=== PATIENT | female | born 1955 | race African-American/Black ===

== ENCOUNTER 2021-07-01 09:02 | Inpatient (IN) | payer OTHER ==
[~2021-07-01] VITALS: Ht 172.7 cm; Wt 59.1 kg
--- NOTE | ~2021-07-01 | EMS ---
[address] [place] [address] EMS Patient Care Report Name: RAMÍREZ BHAKTA Room #: 355-P ADM IN M.R.#: [id number] Admission: 07/01/21 Attend Phys: Unique Tipton MD Discharge: Date of : 55 Report #: [id number] THIS REPORT FOR: //name// Report Transmitted: 07/03/2021 10:49 EMS Care Summary [place], [place]/[facility] Incident [id number] @ 07/01/2021 08:22 Incident Location [address] [place] [address] 104 Patient RAMÍREZ BHAKTA Female, 65 Years 1955 Patient Address [address] [address] Patient History Substance Abuse,Anxiety, Patient Allergies No known allergies, Patient Medications Trazodone, Buspirone, Loperamide, Suboxone, Hydroxyzine, Flexeril, Chief Complaint chest pain Disposition Transported No Lights/[place] Dispatch Reason Sick Person Transported To [facility] Narrative arrived to find patient lying in bed with nursing staff stating that they had no idea she called. patients daughter called for her having chest pain that started at about 7:30 this morning. patient states that it stays in her chest [address] [place] [address] EMS Patient Care Report Name: RAMÍREZ BHAKTA Room #: 355-P [facility] IN M.R.#: [id number] Admission: 07/01/21 Attend Phys: Unique Tipton MD Discharge: Date of : 55 Report #: [id number] and that she would like to go to the closest hospital for care. patient and all belongings are left in room with nursing staff at bedside. patient is conscious and breathing upon leaving the room. Initial Vitals @08:46P: 98,CO: 5,SpO2: 99, @08:43P: 98,R: 20,BP: 189/100,Pain: 4/10,GCS: 15,SpO2: 98,Revised Trauma: 12, @08:34P: 100,R: 20,BP: 190/90,Pain: 4/10,GCS: 15,SpO2: 99,Revised Trauma: 12, Assessments @08:34MENTAL:No Abnormalities,SKIN:No Abnormalities,HEENT:Head/Face: No Abnormalities,Eyes: No Abnormalities,Neck/Airway: No Abnormalities,LUNG SOUNDS:General: No Abnormalities,Left Upper: No Abnormalities,Right Upper: No Abnormalities,Left Lower: No Abnormalities,Right Lower: No Abnormalities,ABDOMEN:General: No Abnormalities,Left Upper: No Abnormalities,Right Upper: No Abnormalities,Left Lower: No Abnormalities,Right Lower: No Abnormalities,PELVIS//GI:No Abnormalities,EXTREMITIES:Left Arm: No Abnormalities,Right Arm: No Abnormalities,Left Leg: No Abnormalities,Right Leg: No Abnormalities,PULSE:NEURO:No Abnormalities, Impression Chest Pain / Discomfort Procedures @08:4612-Lead ECGResponse: UnchangedSucceeded@08:34ALS AssessmentResponse: UnchangedSucceeded@08:34StretcherResponse: Unchanged Timeline 08:15,Call Received 08:15,Dispatch Notified 08:22,Dispatched 08:23,En Route 08:30,On Scene 08:32,At Patient 08:34,ALS Assessment,Response: UnchangedSucceeded, 08:34,Stretcher,Response: Unchanged 08:34,BP: 190/90 M,PULSE: 100,RR: 20 R,SPO2: 99 Ox,ETCO2: ,BG: ,PAIN: 4,GCS: 15, 08:43,BP: 189/100 M,PULSE: 98,RR: 20 R,SPO2: 98 Ox,ETCO2: ,BG: ,PAIN: 4,GCS: 15, 08:45,Depart Scene 08:46,12-Lead ECG,Response: UnchangedSucceeded, 08:46,BP: / M,PULSE: 98,RR: R,SPO2: 99 Ox,ETCO2: ,BG: ,PAIN: ,GCS: , 09:00,At Destination 09:10,Call Closed [address] [address] EMS Patient Care Report Name: RAMÍREZ BHAKTA Room #: 355-P ADM IN M.R.#: [id number] Admission: 07/01/21 Attend Phys: Unique Tipton MD Discharge: Date of : 55 Report #: [id number] Disclaimer v1.1 Copyright 2020 [employer] This EMS Care Summary contains data elements from the applicable legal record (which may be displayed differently). It is designed to provide pertinent information for the following purposes: continuity of care, clinical quality, and state data reporting. The complete legal record is available to ED staff and administrators of the receiving hospital in [employer]'s Patient Tracker. All data is provided "as is."
[2021-07-01 09:03] VITALS: BP 196/101
[2021-07-01 09:35] LABS: ABSOLUTE NEUTROPHILS 6.6 thou/uL (1.4-8.2); BASOPHILS 1.3 % (0.0-2.0); HEMATOCRIT 25.9 % (37.0-47.0); HEMOGLOBIN 8.8 gm/dL (12.0-15.0); LYMPHOCYTES 10.4 % (24.0-44.0); MCH 30.8 pg (26.0-34.0); MCV 90.4 fL (80.0-100.0); MONOCYTES 5.7 % (1.0-8.0); PLATELET COUNT 452 thou/uL (150-400); POLYS 76.6 % (36.0-66.0); RBC 2.86 mil/uL (4.20-5.00); RDW 16.9 % (10.5-14.5); WBC 8.6 thou/uL (4.0-11.0)
[2021-07-01 09:52] LABS: CALCIUM 9.4 mg/dL (8.5-10.1); CREATININE 4.1 mg/dL (0.6-1.0); POTASSIUM 4.3 mmol/L (3.5-5.1)
[2021-07-01 10:02] LABS: ALBUMIN 2.5 g/dL (3.4-5.0); TOTAL BILIRUBIN 0.2 mg/dL (0.2-1.0); TOTAL PROTEIN 6.8 g/dL (6.4-8.2)
[2021-07-01] MEDS ORDERED: MOBIC15 MG PO (11:55)
[2021-07-01] MEDS ORDERED: ESCITALOPRA5 MG/5 ML PO (12:03)
[2021-07-01] MEDS ORDERED: LISINOPRIL10 MG PO (12:04)
[2021-07-01] MEDS ORDERED: NORVASC5 MG PO (12:05)
[2021-07-01] MEDS ORDERED: LEVO-T50 MCG PO (12:05)
[2021-07-01] MEDS ORDERED: ALLOPURINOL 30300 M1 PO (12:06)
[2021-07-01] MEDS ORDERED: SUPER THERAVIT1 EACH PO (12:06)
[2021-07-01] MEDS ORDERED: POTASSIUM ALUM10 GM PO (12:07)
[2021-07-01] MEDS ORDERED: ELIQUIS5 MG PO (12:08)
[2021-07-01] MEDS ORDERED: PLAVIX 75 MG TA75 MG PO (12:08)
[2021-07-01] MEDS ORDERED: LIPITOR40 MG PO (12:09)
[2021-07-01] MEDS ORDERED: MULTAQ 400 MG400 MG PO (12:09)
[2021-07-01 13:08] VITALS: BP 183/90
[2021-07-01] MEDS ORDERED: ASA81BEC PO (13:17)
[2021-07-01] MEDS ORDERED: COREG6.25 MG PO (13:17)
[2021-07-01] MEDS ORDERED: NEURONTIN 300M300 M2 PO (13:18)
[2021-07-01] MEDS ORDERED: LEVEMIR100 UNIT/1 SUBQ (13:19)
[2021-07-01] MEDS ORDERED: HYDRALAZINE HC100 MG PO (13:19)
[2021-07-01 13:32] VITALS: BP 184/90
[2021-07-01] MEDS ORDERED: NIFEDIPINE ER60 M1 PO (13:34)
[2021-07-01] MEDS ORDERED: NOVOLOG100 UNIT/M SUBQ (13:35)
[2021-07-01] MEDS ORDERED: ZOLOFT50 M1 PO (13:35)
[2021-07-01 13:53] VITALS: BP 184/99
[2021-07-01] MEDS ORDERED: CALCIUM CARBON500 MG PO (15:44)
[2021-07-01] MEDS ORDERED: CALCITRIOL0.25 MCG PO (15:44)
[2021-07-01] MEDS ORDERED: PROTONIX40 M2 PO (15:48)
[2021-07-01] MEDS ORDERED: LIDOCAINE 4% K1 EACH TOP (15:48)
[2021-07-01] MEDS ORDERED: LOKELMA10 GM PO (15:49)
[2021-07-01] MEDS ORDERED: TYLENOL325 MG PO (15:49)
[2021-07-01 16:34] VITALS: BP 180/107
--- NOTE | 2021-07-01 18:28 | NUR ---
Pt arrived from ED around 1400. Pt education, assessment, orders, medications, consults all reviewed and acknowledged. Pt allen Rosas/Ox4, 5L NC.
[2021-07-01 19:55] VITALS: BP 122/73
[2021-07-02] VITALS: BP 140/53
[2021-07-02 04:45] VITALS: BP 134/80
--- NOTE | 2021-07-02 06:50 | EKG ---
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 : 1955 Requested By: Seema Ramos Order Number: [id number] MD: Hamilton Metz Measurements Intervals [place] Rate: 90 P: 86 CA: 178 QRS: 3 QRSD: 89 T: 41 QT: 392 QTc: 480 Interpretive Statements Sinus rhythm Abnormal R-wave progression, early transition Consider left ventricular hypertrophy No previous ECG available for comparison Electronically Signed On 07-02-2021 6:50:02 CDT by Hamilton Metz [email or web address] <ELECTRONICALLY SIGNED> By: Hamilton Metz MD, [facility] 07/02/21 0650 1621 1621 Hamilton Metz MD, FACC /EPI
--- NOTE | 2021-07-02 06:50 | EKG ---
[address] [address] ELECTROCARDIOGRAM REPORT Name: RAMÍREZ BHAKTA Room #: 355- ADM IN M.R.#: [id number] Admission: 07/01/21 Attend Phys: Unique Tipton MD Discharge: Date of : 55 Report #: [id number] [facility] ED Test Date: 2021-07-01 Test Time: 09:07:14 Pat Name: RAMÍREZ BHAKTA Department: Room: 355 Gender: F Sports Complex Attendant: UNKNOWN : 1955 Requested By: Julieta العلي Order Number: [id number] : Hamilton Metz Measurements Intervals [place] Rate: 96 P: 57 AL: 182 QRS: 20 QRSD: 94 T: 59 QT: 355 QTc: 449 Interpretive Statements Sinus rhythm Probable left ventricular hypertrophy No previous ECG available for comparison Electronically Signed On 07-02-2021 6:49:35 CDT by Hamilton Metz [email or web address] <ELECTRONICALLY SIGNED> By: Hamilton Metz MD, [facility] 07/02/21 0649 0907 6 Hamilton Metz MD, FACGe /EPI
--- NOTE | 2021-07-02 07:12 | NUR ---
Up in commode at HS and c/o sore buttock stating she has an open sore. Found small open area , picture taken and z guard applied. She requested tylenol last night and again this am for back pain. Denies any chest pain. BP has improved. O2 at 5L (baseline) with O2 sat up to 100%. She does get short of breath wih exertion. Bed alarm on and SCD's in place. Voided per commode. Right chest tessio dialysis cath. No bm this shift.
[2021-07-02 07:53] LABS: ABSOLUTE NEUTROPHILS 6.8 thou/uL (1.4-8.2); BASOPHILS 1.1 % (0.0-2.0); EOSINOPHILS 5.8 % (0.0-3.0); HEMATOCRIT 26.4 % (37.0-47.0); HEMOGLOBIN 8.5 gm/dL (12.0-15.0); LYMPHOCYTES 13.5 % (24.0-44.0); MCH 29.3 pg (26.0-34.0); MCHC 32.1 g/dL (28.0-37.0); MCV 91.3 fL (80.0-100.0); MONOCYTES 8.5 % (1.0-8.0); PLATELET COUNT 480 thou/uL (150-400); POLYS 71.1 % (36.0-66.0); RBC 2.89 mil/uL (4.20-5.00); RDW 17.5 % (10.5-14.5); WBC 9.5 thou/uL (4.0-11.0)
[2021-07-02 08:08] LABS: ALBUMIN 2.4 g/dL (3.4-5.0); CALCIUM 8.5 mg/dL (8.5-10.1); CREATININE 4.8 mg/dL (0.6-1.0); MAGNESIUM 1.9 mg/dL (1.8-2.4); PHOSPHORUS 4.4 mg/dL (2.5-4.9); POTASSIUM 4.7 mmol/L (3.5-5.1)
--- NOTE | 2021-07-02 09:28 | NUR ---
Pt triggered for wounds. Noted with very small StgI decub ulcer to R gluteal region. Admitted with left sided chest pain, cardio consulted. Covid+ 2 weeks ago, awaiting current PCR. Continues with SOA, current smoker. PMH: HTN, DMII, ESRD on HD T/T/S. No intakes reported yet. No c/o recent weight loss or decreased appetite on admit. On renal diet, appropriate. BMI 20.5, WNL. Will initiate [place] for wound healing and ESRD, BID. Low nutrition risk at this time, follow intake trends.
--- NOTE | 2021-07-02 09:51 | NUR ---
WOUND CONSULT; THE PATIENT HAS A SMALL PRESSURE INJURY TO COCCYX GENERAL AREA 1 X 0.5 X 0.1 THE PERIWOUND IS MASCERATED. THE PATIENT GRANT IS 17 AND THE ALBUMIN VALUE IS 2.4 TODAY. RECOMMENDATIONS; -LOW AIR LOSS PUMP -Q2H TURINING AT A MINIMUM. -APPLY ZGUARD BID/PRN TO COCCYX
--- NOTE | 2021-07-02 12:46 | NUR ---
PT ON DIALYSIS; OT EVAL TO BE COMPLETED 07/03/21
--- NOTE | 2021-07-02 13:21 | 2DMMODE ---
[facility] [place] [address] 2 D/M-MODE ECHOCARDIOGRAM Name: RAMÍREZ BHAKTA Room #: 355-P ADM IN M.R.#: [id number] Admission: 07/01/21 Attend Phys: Unique Tipton MD Discharge: Date of : 55 Report #: [id number] THIS REPORT FOR: cc: Filiberto Alvares MD, Srinath MD Santiago, Patrick MD [facility] ~ APPROVED REPORT Study performed: 07/02/2021 12:21:06 EXAM: Limited 2D, Doppler, and color-flow Echocardiogram Patient Location: Bedside Room #: 355 Status: routine BSA: 1.71 HR: 111 bpm BP: 134/80 mmHg Rhythm: Tachycardia Other Information Study Quality: Adequate Technically limited study due to uncooperative patient. Unable to position. Indications Chest pain. HTN. COVID-19. Hx: HTN, HLP, DM, ESRD. Aortic Valve AoV Peak Jose.: 1.29 m/s AO Peak Gr.: 6.68 mmHg Tricuspid Valve RAP Estimate: 5.00 mmHg Left Ventricle The left ventricle is normal size. There is normal LV segmental wall motion. Moderate concentric left ventricular hypertrophy. Left ventricular systolic function is normal. LVEF is 60-65%. This study is not technically sufficient to allow evaluation of the LV diastolic function due to tachycardia. Right Ventricle The right ventricle is normal size. The right ventricular systolic function is normal. [facility] [address] [place] [address] 2 D/M-MODE ECHOCARDIOGRAM Name: RAMÍREZ BHAKTA Room #: 355-P ADM IN M.R.#: [id number] Admission: 07/01/21 Attend Phys: Eligio García Discharge: Date of : 55 Report #: [id number] Atria The atria appear normal in size. Aortic Valve Aortic valve is grossly normal in structure. Trace aortic regurgitation. There is no aortic valvular stenosis. Mitral Valve The mitral valve is normal in structure. There is no mitral valve regurgitation noted. No evidence of mitral valve stenosis. Tricuspid Valve The tricuspid valve is normal in structure. There is no tricuspid valve regurgitation noted. Unable to assess PA pressure. Pulmonic Valve Pulmonic valve is not well visualized. Great Vessels The aortic root is normal in size. Ascending aorta is not well visualized. IVC is normal in size and collapses >50% with inspiration. Pericardium There is no pericardial effusion. <Conclusion> Normal left ventricular size with moderate concentric hypertrophy Ejection fraction 60-65% Grade 1 diastolic dysfunction Normal right ventricular size Normal atrial size Color-flow Doppler study was performed of the aortic/mitral/tricuspid/pulmonary valve Normal aortic/mitral valve structure and function No tricuspid valve insufficiency No pericardial effusion Normal aortic root size. <ELECTRONICALLY SIGNED> By: Hamilton Metz MD, FACC 07/02/21 1321 132 20 Hamilton Metz MD, [facility] /INF
--- NOTE | 2021-07-02 15:00 | NUR ---
COVID PCR IS POSITIVE PER LAB
[2021-07-02 15:12] VITALS: BP 145/85
--- NOTE | 2021-07-02 15:52 | NUR ---
INITIAL ASSESSMENT: SW reviewed chart and spoke with nursing and attending physician. Pt was admitted from [facility] due to chest pain. Pt with hx of COVID. Pt placed in Enhanced Isolation. Repeat COVID test ordered today. Pt with hx of ESRD and is a dialysis pt. Pt is on 5L of O2. SW spoke with pt via phone. Introduced role of SW. Pt appears to be alert/orientated x 4. Pt states she has been at [facility] for just a few days. Pt was hospitalized at [facility] prior to going to [employer]. Pt states she normally lives at home with her nephew. Pt goes to dialysis at [facility]. Pt reports that prior to hospitalization at [facility], she was independent with ambulation and ADLs. Pt states she does not want to return to [facility]. SW explained need to find an in-network provider and may need insurance authorization. Pt verbalized understanding. PT/OT unable to evaluate pt today due to pt being on dialysis. RUPERT is following to assist as needed with discharge planning.
[2021-07-02 20:33] VITALS: BP 115/64
--- NOTE | 2021-07-02 22:58 | NUR ---
PT ASKING FOR SLEEP AND PAIN MEDICATION NOW. STATES SHE IS A "HEROIN USER" AT HOME. TOOK PHONE CALL FROM SOMEONE STATING TO BE PT SISTER, SAYING "SHE IS A USER AND NEEDS SOMETHING TO TAKE THE EDGE OFF." SAID THANK YOU FOR YOUR CONCERN AND WE WILL MONITOR YOUR SISTER.
[2021-07-03 02:06] LABS: HEP B SURFACE Ab(ANTI-HBS Non Reactive (()); HEPATITIS B SURFACE AG Negative (Negative)
[2021-07-03 04:50] VITALS: BP 147/86
[2021-07-03 07:55] VITALS: BP 161/90
[2021-07-03] MEDS ORDERED: BENICAR40 MG PO (08:15)
--- NOTE | 2021-07-03 09:51 | NUR ---
RUPERT reviewed chart and spoke with nursing. Pt has discharge orders. Pt remains in Enhanced Isolation due to COVID. Pt's PCR test yesterday was positive. SW spoke with pt via phone regarding discharge plan. In-network SNF list obtained from insurance website. Reviewed limited options with pt. Pt is agreeable with referral to [facility] SNF. SW informed pt that she has discharge orders and might discharge today pending bed availability and insurance auth. Pt verbalized understanding. SW faxed referral to [facility] and notified liaison of new referral. Awaiting input if insurance auth is required. Will need therapy evals. RUPERT updated attending physician. SW is following to assist as needed with discharge planning.
[2021-07-03 11:39] VITALS: BP 159/91
--- NOTE | 2021-07-03 13:24 | NUR ---
PT ALERT AND ORIENTED TIMES FOUR WITH PERIODS OF CONFUSION. VSS. SR ON TELE. PT C/O PAIN PRN PAIN MEDIATIONS GIVE WITH SOME RELEIF. PT UP TO SIDE OF TE BED WITH ASSIST OF ONE. PT TOLERATES MEDS AND MEALS. PT SLOWLY PROGRESSING TOWRADS POC GOALS.
[2021-07-03 15:15] VITALS: BP 149/88
--- NOTE | 2021-07-03 16:10 | EKG ---
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
[2021-07-03 19:47] VITALS: BP 136/84
--- NOTE | 2021-07-04 03:16 | NUR ---
3 liters n/c tonight. she has had one very large urine output that soaked the entire bed, very foul smelling urine. she is incontinent of bowel and bladder. complains of back pain gave her tylenol for pain. she did complain of some nausea and the zofran helped relieve. she is having trouble resting tonight. she is aware of plan for discharge soon.
[2021-07-04 03:30] VITALS: BP 166/93
[2021-07-04 08:16] VITALS: BP 171/114
[2021-07-04 11:24] VITALS: BP 153/92
[2021-07-04 14:20] VITALS: BP 141/94
[2021-07-04 15:15] VITALS: BP 147/91
--- NOTE | 2021-07-04 16:31 | NUR ---
RN ASSUMED PT'S CARE AT 0700AM, PT IS A&OX4, PT IS ON O2 2-3L/MIN/NC, PT'S VS AND O2SAT ARE STABLE BY THIS TIME, PT HAS DIALYSIS TODAY, REMOVE 700ML FLUID, PT IS ANXIETY AT TIME, PT STARTS NEW PRN MEDICATION FOR BACK PAIN, PT'S N/V CAN CONTROL BY MEDICATIONS,PT IS VERY WEAK AND POOR EATING , PT NEEDS HELP ADL. RN HAS REPORTED DR ABOUT PT'DIARRHEA, NEW ORDER STOOL SENT TO CHECK C-DIFF.
[2021-07-04 19:40] VITALS: BP 163/87
[2021-07-05 04:50] VITALS: BP 184/104
--- NOTE | 2021-07-05 06:44 | NUR ---
PT MAKING SLOW PROGRESS TOWARDS GOALS. C/O RECURRENT BACK PAIN FREQUENTLY RATING IT 7-9/10. ON O2 AT 4L PER NC OVERNIGHT. LUNGS DIMINISHED THROUGHOUT.
[2021-07-05 07:51] VITALS: BP 168/100
[2021-07-05 11:13] VITALS: BP 161/99
[2021-07-05 15:04] VITALS: BP 137/81
--- NOTE | 2021-07-05 18:39 | NUR ---
RN ASSUMED PT'S CARE AT 0700AM, PT IS A&OX4, PT IS ON O2 2L/MIN/NC,PT'S VS AND O2SAT ARE STABLE, PT IS CONTINUING PAIN MANAGEMENT AND TREAT COVID, AND DAILYSIS, RN HAS REPORTED TO DR ABOUT PT'S POOR EATING, PT IS RELAXING NOW.
[2021-07-05 20:14] VITALS: BP 145/80
[2021-07-06 03:35] VITALS: BP 156/73
[2021-07-06 09:00] VITALS: BP 165/80
--- NOTE | 2021-07-06 09:39 | NUR ---
WOUND CARE F/U; AWAKE, ALERT, COOPERATIVE, C/O NAUSEA, SITTING UP IN CHAIR, COCCYX WOUND ALMOST CLOSED, HEALING, NO DRAINAGE, NO S/S INFECTION, CONTS ON LOW AIR LOSS PUMP TO BED, ENCOURAGED TO NOT SIT LONG PERIODS, SEE PROCESS INTERVENTION FOR WOUND DETAILS RECOMMENDATIONS; CONT Z GUARD OR BARRIER CREAM TO AREA BID AND PRN, CONT LOW AIR LOSS PUMP TO BED, ENCOURAGE TO NOT SIT LONG PERIODS, TURN FREQ WHEN IN BED CLAIMS ADJUSTER AWARE
[2021-07-06 11:07] VITALS: BP 182/87
--- NOTE | 2021-07-06 11:44 | NUR ---
RUPERT reviewed chart and spoke with nursing and attending physician. Pt remains in Enhanced Isolation due to COVID. Pt is afebrile and on 5L of O2. Discharge ppwk completed by attending physician. RUPERT faxed clinical and therapy updates to [facility] post acute liaison for review. Per liaison, insurance auth is pending for pt to admit to [facility]. RUPERT placed call to pt's room. No answer. Chart copy requested. RUPERT is following to assist as needed with discharge planning.
[2021-07-06 14:05] VITALS: BP 165/88
[2021-07-06 16:07] VITALS: BP 123/67
--- NOTE | 2021-07-06 16:37 | NUR ---
RN ASSUMED PT'S CARE AT 0700AM, PT IS A&OX3 ( PERSON, PLACE AND TIME), PT IS ON O2 2-3L/MIN/NC, PT'S O2SAT STAYS AT 92-95%, PT 'S SOB AND N/V HAVE IMPROVED, RN HAS REPORTED TO DR ABOUT PT'S POOR EATING, PT GETS UP TO CHAIR WITH ASSIST, PT IS CONTINUING PAIN MANAGEMENT AND TREAT COVID MEDICATIONS.PT'S DISCHAGE STILL IS PENDING.PT IS RELAXING NOW.
[2021-07-06 20:00] VITALS: BP 115/75
[2021-07-07 04:20] VITALS: BP 110/61
--- NOTE | 2021-07-07 06:55 | NUR ---
POOR APPETITE, PT NOT EATING DINNER TRAY. ONLY WANTING SNACKS AND PAIN MEDICATION. DIALYSIS TODAY AND POSSIBLE DC. PT USES CALL LIGHT FREQUENTLY. REEDUCATED PT ON HOW TO PULL UP HER BLANKETS AND MOVE HERSELF UP IN BED. PT UP TO BSC.
[2021-07-07 07:25] VITALS: BP 142/88
[2021-07-07 11:19] VITALS: BP 137/79
--- NOTE | 2021-07-07 12:37 | NUR ---
RUPERT reviewed chart and spoke with nursing and attending physician. Pt remains in Enhanced Isolation due to COVID. Pt is afebrile and on 2L of O2. Pt is medically stable for discharge to [facility] today pending insurance authorization. RUPERT faxed updated clinical and OT note to [facility] post-acute liaison for review. Per liaison, insurance auth is still pending. RUPERT spoke with pt via phone to provide update. Pt verbalized understanding. SW is following to assist as needed with discharge planning.
[2021-07-07 16:30] VITALS: BP 111/70
--- NOTE | 2021-07-07 16:53 | NUR ---
RN ASSUMED PT'S CARE AT 0700AM, PT IS A&OX4, PT IS ON O2 2L/MIN/NC, PT HAS DIALYSIS TODAY, REMOVAL 1500ML FLUID, PT IS TOLERATVE DAILYSIS, PT'S VS ARE STABLE, RN HAS NOTIFIED DR AND FAMILY ABOUT PT'S POOR EATING AT MEAL TIME, PT'S SOB , N/V AND DIARRHEA HAVE IMPROVED, PT GETS UP TO CHAIR WITH ASSIST. PT WILL DC TO SNF TOMORROW.
[2021-07-07 19:21] VITALS: BP 112/72
[2021-07-08 03:14] VITALS: BP 185/97
--- NOTE | 2021-07-08 05:10 | NUR ---
PT MAKING SLOW PROGRESS TOWARDS GOALS. ON O2 AT 2L PER NC OVERNIGHT. NO SOA NOTED WHILE AT REST. X2 DOSES OF LORTAB GIVEN FOR BACK PAIN. LUNGS DIMINISHED THROUGHOUT. PT REPORTS SMALL AMOUNT OF PAIN RELIEF FROM LORTAB.
[2021-07-08 05:54] VITALS: BP 193/104
--- NOTE | 2021-07-08 08:41 | NUR ---
DISCHARGE NOTE: SW reviewed chart. Pt is medically stable for discharge to [facility] today. SW confirmed with [facility] liaison, who confirmed they do have insurance auth and are able to accept pt today. SW provided info for [facility] to arrange transportation. Chart copy requsted. SW spoke with pt via phone to provide update. Pt is aware and in agreement with discharge plan. Pt requesting to discharge as early as possible. SW explained that the facility will schedule transportation and let SW know. Pt verbalized understanding. SW is following to assist as needed with discharge planning.
[2021-07-08 12:22] VITALS: BP 152/86
--- NOTE | 2021-07-08 14:39 | NUR ---
ASSUMED PATIENT CARE AT 0700. A/O X4. NAUSEA, POOR APPETITE. LOOSE STOOL. NOT TOWARDS POC GOALS. WILL DC TO SNF SOON.
== END 2021-07-08 15:41 | DRG 189 ==
LOC: ER 09:02 → EROBS 13:09 → 3W 13:09
PROVIDERS: Emergency Medicine; Hospitalist; Nurse Practitioner; ADMIT Hospitalist; ATTEND Hospitalist
PROC: 5A1D70Z Performance of Urinary Filtration, Intermittent, Less than 6 Hours Per Day (ICD-10-PCS; principal; 2021-07-02)
PROC: 5A1D70Z Performance of Urinary Filtration, Intermittent, Less than 6 Hours Per Day (ICD-10-PCS; 2021-07-04)
PROC: 5A1D70Z Performance of Urinary Filtration, Intermittent, Less than 6 Hours Per Day (ICD-10-PCS; 2021-07-07)
DX: J96.20 Acute and chronic respiratory failure, unspecified whether with hypoxia or hypercapnia (principal); N18.6 End stage renal disease; I13.2 Hypertensive heart and chronic kidney disease with heart failure and with stage 5 chronic kidney disease, or end stage renal disease; I16.0 Hypertensive urgency; E11.22 Type 2 diabetes mellitus with diabetic chronic kidney disease; E78.00 Pure hypercholesterolemia, unspecified; M10.9 Gout, unspecified; I50.9 Heart failure, unspecified; F17.210 Nicotine dependence, cigarettes, uncomplicated; D64.9 Anemia, unspecified; G62.9 Polyneuropathy, unspecified; E78.5 Hyperlipidemia, unspecified; E03.9 Hypothyroidism, unspecified; Z99.2 Dependence on renal dialysis; Z79.82 Long term (current) use of aspirin; Z79.4 Long term (current) use of insulin; Z79.899 Other long term (current) drug therapy; B94.8 Sequelae of other specified infectious and parasitic diseases
CPT/HCPCS: 10879; 32100